=== PATIENT | female | born 1970 | race Caucasian/White ===

== ENCOUNTER 2023-01-23 06:27 | Day surgery (SDC) | payer OTHER ==
[2023-01-23] VITALS (12 sets, daily range): BP systolic 81–130; BP diastolic 43–85
[~2023-01-23] VITALS: Ht 162.6 cm; Wt 70.3 kg
[2023-01-23] MEDS ORDERED: NS IV 1000 ML 1,000 ML IV SCH (06:45)
[2023-01-23] MEDS ORDERED: ONDANSETRON 4 MG/2 ML (SDV) Z0FRAN IVP ONE (06:45)
--- NOTE | 2023-01-23 06:48 | ED Abdominal Pain ---
General Stated Complaint: FEVER 102.,ABD PAIN MIDDLE & RT Source of Information: Patient Exam Limitations: No Limitations History of Present Illness Date Seen by Provider: January 23, 2023 Time Seen by Provider: 06:35 Initial Comments 52-year-old female presents to the emergency department today for right-sided abdominal pain, nausea. Symptoms started as chills, fevers on Monday. She states this was to 103.5 when taken orally. Yesterday she developed a "pressure" in her right upper and right lower abdomen. This has been constant since that time. She states she feels as though if she vomited she would feel better. She has associated nausea but has not vomited. She has had normal bowel movements. She has had irregular menses for the last year but has not had a menstrual cycle for about 8 weeks. She denies any change in urine. Her only abdominal surgeries include a tubal ligation. No diarrhea or loose stools. She does still have her gallbladder and her appendix. Pain is nonradiating without any obvious aggravating or alleviating factors. She took a home COVID test yesterday which was negative. All other systems reviewed and negative except documented per HPI. Voice recognition software was used to help create this chart Allergies and Home Medications Allergies Coded Allergies: CAM Inhibitors (Verified Allergy, Unknown, 01/23/23) fentanyl (Verified Allergy, Unknown, 01/23/23) Patient Home Medication List Home Medication List Reviewed: Yes Review of Systems Review of Systems Constitutional: see HPI Past Mhpkzqw-Riivvg-Fsuuqy Hx Patient Social History Tobacco Use?: No Use of E-Cig and/or Vaping dev: No Substance use?: No Alcohol Use?: No Past Medical History Surgery/Hospitalization HX: Asthma, high blood pressure, tubal ligation, breast augmentation Family Medical History Reviewed Nursing Family Hx No Pertinent Family Hx Physical Exam Vital Signs Vital Signs - First Documented 01/23/23 06:39 Temp 37.1 Pulse 86 Resp 20 B/P (MAP) 151/87 (108) Pulse Ox 98 O2 Delivery Room Air Capillary Refill : Height/Weight/BMI Height: '" Weight: lbs. oz. kg; BMI Method: General Appearance: WD/WN, no apparent distress HEENT: normal ENT inspection, pharynx normal Neck: non-tender, full range of motion, supple, normal inspection Respiratory: chest non-tender, lungs clear, normal breath sounds, no respiratory distress, no accessory muscle use Cardiovascular: regular rate, rhythm, no murmur Gastrointestinal: normal bowel sounds, soft, no organomegaly, tenderness (Diffuse mild tenderness that appears to be worse in the right mid abdomen. There is voluntary guarding without any rebound tenderness. Negative obturator, heel strike.) Extremities: normal range of motion, non-tender, normal inspection, no calf tenderness, normal capillary refill Back: normal inspection, no CVA tenderness Neurologic/Psychiatric: alert, normal mood/affect, oriented x 3 Skin: normal color, warm/dry Progress/Results/Core Measures Results/Orders Lab Results Laboratory Tests Test 01/23/23 06:46 01/23/23 07:10 Range/Units White Blood Count 8.3 4.3-11.0 10^3/uL Red Blood Count 4.37 3.80-5.11 10^6/uL Hemoglobin 12.3 11.5-16.0 g/dL Hematocrit 37 35-52 % Mean Corpuscular Volume 86 80-99 fL Mean Corpuscular Hemoglobin 28 25-34 pg Mean Corpuscular Hemoglobin Concent 33 32-36 g/dL Red Cell Distribution Width 13.7 10.0-14.5 % Platelet Count 183 130-400 10^3/uL Mean Platelet Volume 9.3 9.0-12.2 fL Immature Granulocyte % (Auto) 0 % Neutrophils (%) (Auto) 81 H 42-75 % Lymphocytes (%) (Auto) 11 L 12-44 % Monocytes (%) (Auto) 5 0-12 % Eosinophils (%) (Auto) 3 0-10 % Basophils (%) (Auto) 0 0-10 % Neutrophils # (Auto) 6.7 1.8-7.8 10^3/uL Lymphocytes # (Auto) 0.9 L 1.0-4.0 10^3/uL Monocytes # (Auto) 0.4 0.0-1.0 10^3/uL Eosinophils # (Auto) 0.3 0.0-0.3 10^3/uL Basophils # (Auto) 0.0 0.0-0.1 10^3/uL Immature Granulocyte # (Auto) 0.0 0.0-0.1 10^3/uL Sodium Level 138 135-145 MMOL/L Potassium Level 3.0 L 3.6-5.0 MMOL/L Chloride Level 102 98-107 MMOL/L Carbon Dioxide Level 23 21-32 MMOL/L Anion Gap 13 5-14 MMOL/L Blood Urea Nitrogen 8 7-18 MG/DL Creatinine 0.73 0.60-1.30 MG/DL Estimat Glomerular Filtration Rate 100 BUN/Creatinine Ratio 11 Glucose Level 99 70-105 MG/DL Calcium Level 8.9 8.5-10.1 MG/DL Corrected Calcium 9.2 8.5-10.1 MG/DL Total Bilirubin 0.5 0.1-1.0 MG/DL Aspartate Amino Transf (AST/SGOT) 22 5-34 U/L Alanine Aminotransferase (ALT/SGPT) 34 0-55 U/L Alkaline Phosphatase 55 40-136 U/L Total Protein 7.3 6.4-8.2 GM/DL Albumin 3.6 3.2-4.5 GM/DL Lipase 7 L 8-78 U/L Urine Color YELLOW Urine Clarity CLEAR Urine pH 6.0 5-9 Urine Specific [place] 1.020 1.016-1.022 Urine Protein 2+ H NEGATIVE Urine Glucose (UA) NEGATIVE NEGATIVE Urine Ketones 3+ H NEGATIVE Urine Nitrite NEGATIVE NEGATIVE Urine Bilirubin 1+ H NEGATIVE Urine Urobilinogen 0.2 < = 1.0 MG/DL Urine Leukocyte Esterase NEGATIVE NEGATIVE Urine RBC (Auto) TRACE-I H NEGATIVE Urine RBC 0-2 /HPF Urine WBC 2-5 /HPF Urine Squamous Epithelial Cells 5-10 /HPF Urine Crystals NONE /LPF Urine Bacteria FEW H /HPF Urine Casts NONE /LPF Urine Mucus SMALL H /LPF Urine Culture Indicated NO My Orders Orders - CHRISTIE FIGUEROA DO Cbc With Automated Diff (01/23/23 06:43) Comprehensive Metabolic Panel (01/23/23 06:43) Lipase (01/23/23 06:43) Urine Bedside (01/23/23 06:43) Ua Culture If Indicated (01/23/23 06:43) Ct Abdomen/Pelvis W (01/23/23 06:43) Ns Iv 1000 Ml (Sodium Chloride 0.9%) (01/23/23 06:45) Ondansetron Injection (Zofran Injectio (01/23/23 06:45) Iohexol Injection (Omnipaque 350 Mg/Ml 1 (01/23/23 07:00) Received Contrast (Hold Metformin- Contr (01/23/23 07:00) Ns (Ivpb) (Sodium Chloride 0.9% Ivpb Bag (01/23/23 07:00) Ketorolac Injection (Toradol Injection) (01/23/23 07:45) Morphine Injection (Morphine Injection (01/23/23 07:59) Medications Given in ED Current Medications Medications Dose Ordered Sig/Herminio Route Start Time Stop Time Status Last Admin Dose Admin Iohexol 100 ml ONCE ONCE IV 01/23/23 07:00 01/23/23 07:01 DC 01/23/23 07:37 80 ML Ketorolac Tromethamine 15 mg ONCE ONCE IVP 01/23/23 07:45 01/23/23 07:46 DC 01/23/23 07:43 15 MG Ondansetron HCl 8 mg ONCE ONCE IVP 01/23/23 06:45 01/23/23 06:46 DC 01/23/23 06:54 8 MG Sodium Chloride 100 ml ONCE ONCE IV 01/23/23 07:00 01/23/23 07:01 DC 01/23/23 07:38 80 ML Vital Signs/I&O 01/23/23 06:39 Temp 37.1 Pulse 86 Resp 20 B/P (MAP) 151/87 (108) Pulse Ox 98 O2 Delivery Room Air Departure Communication (Admissions) Patient is hemodynamically stable. Initially she is diffusely tender in the right side of her abdomen with voluntary guarding. She has had a significant amount of pain febrile and nontoxic. Labs are reassuring. No evidence for pancreatitis, biliary obstruction. UTI or pyelonephritis, pelvic pathology, appendicitis, bowel pathology. I did independently review her CT scan images. I agree with radiology findings of cholelithiasis without any other acute abnormalities. White blood cell count is normal she is afebrile. I do not think she has acute cholecystitis. I think her symptoms are related to biliary colic. I have given her IV Toradol, IV morphine and IV Zofran. She had a slight improvement in her pain but is still in a considerable amount of discomfort. With that I called Dr. Souleymane delong recommends admission for cholecystectomy. He does not wish to proceed with ultrasound imaging with normal LFTs. He states he will be down soon to evaluate the patient for surgery. Last p.o. intake was 330 this morning, sip of water with some Tylenol. Impression Primary Impression: Cholelithiasis Qualified Codes: K80.20 - Calculus of gallbladder without cholecystitis without obstruction Additional Impression: Biliary colic Disposition: ADMITTED INPATIENT Condition: Stable Admissions Decision to Admit Reason: Admit from ER (General) Departure-Patient Inst. Referrals: ESTHER ASTUDILLO APRN (PCP) Primary Care Physician CHRISTIE FIGUEROA DO January 23, 2023 06:48
[2023-01-23 06:56] LABS: BASOPHILS % (AUTO) 0 % (0-10); EOSINOPHILS # (AUTO) 0.3 10^3/uL (0.0-0.3); EOSINOPHILS % (AUTO) 3 % (0-10); HEMATOCRIT 37 % (35-52); HEMOGLOBIN 12.3 g/dL (11.5-16.0); LYMPHOCYTES # (AUTO) 0.9 10^3/uL (1.0-4.0); LYMPHOCYTES % (AUTO) 11 % (12-44); MEAN CORPUSCULAR HEMOGLOBIN 28 pg (25-34); MEAN CORPUSCULAR HGB CONC 33 g/dL (32-36); MEAN CORPUSCULAR VOLUME 86 fL (80-99); MEAN PLATELET VOLUME 9.3 fL (9.0-12.2); MONOCYTES # (AUTO) 0.4 10^3/uL (0.0-1.0); MONOCYTES % (AUTO) 5 % (0-12); NEUTROPHILS # (AUTO) 6.7 10^3/uL (1.8-7.8); NEUTROPHILS % (AUTO) 81 % (42-75); PLATELET COUNT 183 10^3/uL (130-400); WHITE BLOOD COUNT 8.3 10^3/uL (4.3-11.0)
[2023-01-23] MEDS ORDERED: IOHEXOL 350 MG/ML 100 ML (OMNIPAQUE 350) VIAL IV ONE (07:00)
[2023-01-23] MEDS ORDERED: NS 100 ML (IVPB) BAG IV ONE (07:00)
[2023-01-23] MEDS ORDERED: HOLD METFORMIN - RECEIVED CONTRAST 20 ML VIAL IV SCH (07:00)
[2023-01-23 07:08] LABS: ALBUMIN 3.6 GM/DL (3.2-4.5)
[2023-01-23 07:10] LABS: CALCIUM 8.9 MG/DL (8.5-10.1)
[2023-01-23 07:11] LABS: TOTAL PROTEIN 7.3 GM/DL (6.4-8.2)
[2023-01-23 07:13] LABS: BILIRUBIN,TOTAL 0.5 MG/DL (0.1-1.0)
[2023-01-23 07:15] LABS: CREATININE SERUM 0.73 MG/DL (0.60-1.30)
[2023-01-23 07:18] LABS: CLARITY,URINE CLEAR; COLOR,URINE YELLOW; GLUCOSE, URINE (UA) NEGATIVE (NEGATIVE); KETONES,URINE 3+ (NEGATIVE); LEUKOCYTE ESTERASE ,URINE NEGATIVE (NEGATIVE); NITRITE,URINE NEGATIVE (NEGATIVE); PROTEIN,URINE 2+ (NEGATIVE)
[2023-01-23 07:30] LABS: BACTERIA,URINE FEW /HPF; BILIRUBIN,URINE 1+ (NEGATIVE); RBC,URINE 0-2 /HPF
[2023-01-23] MEDS ORDERED: KETOROLAC 15 MG/ML VIAL IVP ONE (07:45)
--- NOTE | 2023-01-23 07:47 | Diagnostic Imaging Report ---
PROCEDURE: CT abdomen and pelvis with contrast. TECHNIQUE: Multiple contiguous axial images were obtained through the abdomen and pelvis after administration of intravenous contrast. Auto Exposure Controls were utilized during the CT exam to meet ALARA standards for radiation dose reduction. All CT scans use one or more of the following dose optimizing techniques: automated exposure control, MA and/or KvP adjustment based on patient size and exam type or iterative reconstruction. INDICATION: There has been bilateral breast augmentation with implants. The lung bases are clear. The liver is normal in size without focal lesions. No biliary duct dilatation. There is cholelithiasis. The spleen is normal in size. The pancreas and adrenal glands are unremarkable. Kidneys are normal in appearance. Aorta is nonaneurysmal. The bowel gas pattern is nonspecific. There is no free air. There may be some trace free pelvic fluid, likely physiologic. Bladder is normal. There is no pelvic mass or adenopathy. There are minimal degenerative changes in the spine IMPRESSION: Cholelithiasis. Trace free fluid in the pelvis likely physiologic. No other acute abnormality in the abdomen or pelvis. Dictated by: Dictated on workstation # [id number]
[2023-01-23] MEDS ORDERED: morphine INJ 10 MG/ML 1ML (SYR OR VIAL) IVP STA (07:59)
[2023-01-23] MEDS ORDERED: HYDROmorphone 2 MG/ML VIAL (DILAUDID) IV ONE ×2 (10:15→12:30)
--- NOTE | 2023-01-23 11:22 | Consultation - Surgery ---
History of Present Illness History of Present Illness Patient Consulted On(chiquis/time) 01/23/23 11:16 Time Seen by Provider: 10:26 History of Present Illness Surgery asked to consult regarding Cholelithiasis/Cholecystitis HPI per ED: 52-year-old female presents to the emergency department today for right-sided abdominal pain, nausea. Symptoms started as chills, fevers on Monday. She states this was to 103.5 when taken orally. Yesterday she developed a "pressure" in her right upper and right lower abdomen. This has been constant since that time. She states she feels as though if she vomited she would feel better. She has associated nausea but has not vomited. She has had normal bowel movements. She has had irregular menses for the last year but has not had a menstrual cycle for about 8 weeks. She denies any change in urine. Her only abdominal surgeries include a tubal ligation. No diarrhea or loose stools. She does still have her gallbladder and her appendix. Pain is nonradiating without any obvious aggravating or alleviating factors. She took a home COVID test yesterday which was negative. When I saw pt she was in the bed in ER, did not appear completely comfortable and said to me "get this out". She stated the pain started Monday and progressively got worse, associated with fever. She has never had pain like this before or even minimal pain in the RUQ. Denies any association with food; nothing makes worse. Pain is described as constant ache without any radiation of the pain. Allergies and Home Medications Allergies Coded Allergies: CAM Inhibitors (Verified Allergy, Unknown, 01/23/23) fentanyl (Verified Allergy, Unknown, 01/23/23) Patient Home Medication List Home Medication List Reviewed: Yes Past Wpbzqco-Sktdpy-Zijayu Hx Patient Social History Smoking Status: Never a Smoker Alcohol Use?: No Have you traveled recently?: No Surgeries History of Surgeries: Yes (breast augmentation) Surgeries: Tubal Ligation Respiratory History of Respiratory Disorde: Yes Respiratory Disorders: Asthma Cardiovascular History of Cardiac Disorders: Yes Cardiac Disorders: Hypertension Neurological History of Neurological Disord: No Reproductive System : No Genitourinary History of Genitourinary Disor: No Gastrointestinal History of Gastrointestinal Di: Yes Gastrointestinal Disorders: Gall Bladder Disease Musculoskeletal History of Musculoskeletal Dis: No Endocrine History of Endocrine Disorders: No HEENT History of HEENT Disorders: No Loss of Vision: Denies Hearing Impairment: Denies Cancer History of Cancer: No Psychosocial History of Psychiatric Problem: No Family Medical History Significant Family History: Diabetes (mother and father), GI Disease (Mother had GB removed), Hypertension (mother and father) Review of Systems-General Constitutional: chills, diaphoresis, fever, malaise EENTM: No blurred vision, No mouth swelling, No epistaxis Respiratory: No cough, No dyspnea on exertion Cardiovascular: No chest pain, No palpitations Gastrointestinal: abdominal pain; No hematemesis, No jaundice; loss of appetite, nausea Genitourinary: No dysuria, No frequency, No hematuria : No Musculoskeletal: No joint pain, No joint swelling Skin: No change in color, No change in hair/nails Psychiatric/Neurological: Denies Anxiety, Denies Depressed, Denies Seizure, Denies Tremors Physical Exam-General Problems Physical Exam Vital Signs Vital Signs - First Documented 01/23/23 06:39 Temp 37.1 Pulse 86 Resp 20 B/P (MAP) 151/87 (108) Pulse Ox 98 O2 Delivery Room Air Capillary Refill : Less Than 3 Seconds General Appearance: WD/WN, moderate distress Eyes: Bilateral Eye PERRL, Bilateral Eye EOMI HEENT: pharynx normal; No scleral icterus (R), No scleral icterus (L) Neck: non-tender, supple Respiratory: lungs clear, normal breath sounds, no respiratory distress, no accessory muscle use Cardiovascular: regular rate, rhythm, no murmur Gastrointestinal: soft, no organomegaly, no pulsatile mass, tenderness (RUQ and epigastric); No hernia Rectal: deferred Back: no CVA tenderness, no vertebral tenderness Extremities: non-tender, no pedal edema, no calf tenderness 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, no motor/sensory deficits, alert, normal mood/affect, oriented x 3 Skin: normal color, warm/dry Lymphatic: no adenopathy (neck, axilla or groin) Data Review Labs Laboratory Tests 01/23/23 06:46: White Blood Count 8.3, Red Blood Count 4.37, Hemoglobin 12.3, Hematocrit 37, Mean Corpuscular Volume 86, Mean Corpuscular Hemoglobin 28, Mean Corpuscular Hemoglobin Concent 33, Red Cell Distribution Width 13.7, Platelet Count 183, Mean Platelet Volume 9.3, Immature Granulocyte % (Auto) 0, Neutrophils (%) (Auto) 81H, Lymphocytes (%) (Auto) 11L, Monocytes (%) (Auto) 5, Eosinophils (%) (Auto) 3, Basophils (%) (Auto) 0, Neutrophils # (Auto) 6.7, Lymphocytes # (Auto) 0.9L, Monocytes # (Auto) 0.4, Eosinophils # (Auto) 0.3, Basophils # (Auto) 0.0, Immature Granulocyte # (Auto) 0.0, Sodium Level 138, Potassium Level 3.0L, Chloride Level 102, Carbon Dioxide Level 23, Anion Gap 13, Blood Urea Nitrogen 8, Creatinine 0.73, Estimat Glomerular Filtration Rate 100, BUN/Creatinine Ratio 11, Glucose Level 99, Calcium Level 8.9, Corrected Calcium 9.2, Total Bilirubin 0.5, Aspartate Amino Transf (AST/SGOT) 22, Alanine Aminotransferase (ALT/SGPT) 34, Alkaline Phosphatase 55, Total Protein 7.3, Albumin 3.6, Lipase 7L 01/23/23 07:10: Urine Color YELLOW, Urine Clarity CLEAR, Urine pH 6.0, Urine Specific [place] 1.020, Urine Protein 2+H, Urine Glucose (UA) NEGATIVE, Urine Ketones 3+H, Urine Nitrite NEGATIVE, Urine Bilirubin 1+H, Urine Urobilinogen 0.2, Urine Leukocyte Esterase NEGATIVE, Urine RBC (Auto) TRACE-IH, Urine RBC 0-2, Urine WBC 2-5, Urine Squamous Epithelial Cells 5-10, Urine Crystals NONE, Urine Bacteria FEWH, Urine Casts NONE, Urine Mucus SMALLH, Urine Culture Indicated NO Radiology Date of Exam:01/23/23 CT ABDOMEN/PELVIS W PROCEDURE: CT abdomen and pelvis with contrast. TECHNIQUE: Multiple contiguous axial images were obtained through the abdomen and pelvis after administration of intravenous contrast. Auto Exposure Controls were utilized during the CT exam to meet ALARA standards for radiation dose reduction. All CT scans use one or more of the following dose optimizing techniques: automated exposure control, MA and/or KvP adjustment based on patient size and exam type or iterative reconstruction. INDICATION: There has been bilateral breast augmentation with implants. The lung bases are clear. The liver is normal in size without focal lesions. No biliary duct dilatation. There is cholelithiasis. The spleen is normal in size. The pancreas and adrenal glands are unremarkable. Kidneys are normal in appearance. Aorta is nonaneurysmal. The bowel gas pattern is nonspecific. There is no free air. There may be some trace free pelvic fluid, likely physiologic. Bladder is normal. There is no pelvic mass or adenopathy. There are minimal degenerative changes in the spine IMPRESSION: Cholelithiasis. Trace free fluid in the pelvis likely physiologic. No other acute abnormality in the abdomen or pelvis. Dictated by: Dictated on workstation # [id number] Dict: 01/23/23 0739 Trans: 01/23/23 0859 CVB [id number] Interpreted by: TYRONE BERRIOS MD Electronically signed by: TYRONE BERRIOS MD 01/23/23 0859 Assessment/Plan Assessment/Plan Assessment/Plan Acute Cholecysitis with Cholelithiasis IV fluids, pain medications, anti-emetics as needed. I reviewed the CT myself and discussed the case with ER physician. She has acute cholecystitis and I believe would benefit from having her gallbladder removed. Will get consent for Laparoscopic Cholecystectomy, possible cholangiogram, possible open and all other indicated procedures. Discussed risks and complications not limited to pain, bleeding, infection, scar, damage to bowel or bile duct and need for further procedure. She is NPO and will go to the OR for surgery. All questions answered to her and her 's satisfaction. MERISSA MELISSA DO January 23, 2023 11:22
[2023-01-23] MEDS ORDERED: ONDANSETRON 4 MG/2 ML (SDV) Z0FRAN ONE (11:56)
[2023-01-23] MEDS ORDERED: proPOfol 200 MG/20 ML (DIPRIVAN) VIAL IV ONE (11:56)
[2023-01-23] MEDS ORDERED: GLYCOPYRROLATE 0.2 MG/ML (ROBINUL) 2 ML VIAL ONE (11:56)
[2023-01-23] MEDS ORDERED: LIDOCAINE PF 2% 5 ML (XYLOCAINE) VIAL ONE (11:56)
[2023-01-23] MEDS ORDERED: MIDAZOLAM 2 MG/2 ML (VERSED) VIAL ONE (11:56)
[2023-01-23] MEDS ORDERED: fentaNYL INJ 100 MCG/2 ML AMP ONE (11:56)
[2023-01-23] MEDS ORDERED: ROCURONIUM 50 MG/5 ML (ZEMURON) VIAL IV ONE (11:57)
[2023-01-23] MEDS ORDERED: NEOSTIGMINE (BLOXIVERZ ) 1 MG/1ML 10 ML VIAL ONE (11:57)
[2023-01-23] MEDS ORDERED: BUP/EPI 0.25% 1:200,000 (MARCAINE) 30 ML VIAL ONE (11:59)
[2023-01-23] MEDS ORDERED: LACTATED RINGERS 1,000 ML IV PRN (12:30)
[2023-01-23] MEDS ORDERED: HYDROmorphone 2 MG/ML VIAL (DILAUDID) ONE (12:36)
[2023-01-23] MEDS ORDERED: ceFAZolin INJECTION 2,000 MG in NS (IVPB) 50 ML IV ONE (12:45)
[2023-01-23] MEDS ORDERED: morphine INJ 10 MG/ML 1ML (SYR OR VIAL) ONE (12:52)
[2023-01-23] MEDS ORDERED: IOHEXOL 300 MG/ML 30 ML (OMNIPAQUE 300) VIAL INJ ONE (13:20)
[2023-01-23] MEDS ORDERED: BUP/EPI 0.25% 1:200,000 (MARCAINE) 30 ML VIAL INJ ONE (13:20)
[2023-01-23] MEDS ORDERED: OMEG100032 PO (13:28)
[2023-01-23] MEDS ORDERED: UBID100C17 PO (13:28)
[2023-01-23] MEDS ORDERED: RED600CA2 PO (13:28)
[2023-01-23] MEDS ORDERED: BIOTIN PO (13:28)
[2023-01-23] MEDS ORDERED: FLUT1BLS IH (13:28)
[2023-01-23] MEDS ORDERED: FEXO1TAB43 PO (13:28)
[2023-01-23] MEDS ORDERED: MONT-47 PO (13:28)
[2023-01-23] MEDS ORDERED: CHLO25TA22 PO (13:28)
[2023-01-23] MEDS ORDERED: LOSA25TA41 PO (13:28)
--- NOTE | 2023-01-23 13:52 | Anesthesia-General Post-Op ---
General Patient Condition Mental Status/LOC: Same as Preop Cardiovascular: Satisfactory Nausea/Vomiting: Absent Respiratory: Satisfactory Pain: Controlled Complications: Absent Post Op Complications Complications None Follow Up Care/Instructions Patient Instructions None needed. Anesthesia/Patient Condition Patient Condition Patient is doing well, no complaints, stable vital signs, no apparent adverse anesthesia problems. No complications reported per nursing. MARYBETH SNIDER CRNA January 23, 2023 13:52
--- NOTE | 2023-01-23 13:54 | Progress Note-Post Operative ---
Post-Operative Progess Note Surgeon (s)/Chief Specialist Leed (s) Surgeon MERISSA MELISSA DO Chief Specialist Leed: [place] Pre-Operative Diagnosis Acute Cholecystitis/Cholelithiasis Post-Operative Diagnosis same Procedure & Operative Findings Date of Procedure 01/23/23 Procedure Performed/Findings PROCEDURE: Laparoscopic cholecystectomy with intraoperative cholangiogram. COMPLICATIONS: None. PROCEDURE: The patient was taken to the operating suite and was prepped and draped in sterile fashion. A surgical pause was performed. Just superior to the umbilicus, a 12 mm incision was made. Dissection was taken down to the fascia, which was then scored and grasped with a Prosper and the abdomen was then entered. An 0 Vicryl suture was placed in a [id number] fashion and a Melton trocar was placed and secured. Pneumoperitoneum was achieved. A 5mm trochar place in the subxyphoid and 2 in the right upper quadrant. Immediately upon entering saw some fibrinous material and purulent fluid; pictures taken. The gallbladder was distended but the wall was thin; it was grasped and taken in the superior direction. Then grasped down at Owusu's pouch and pulled in the infero-lateral direction. The cystic duct and cystic artery were then dissected out. Clip was placed on the distal portion of the cystic duct which was then partially transected. An arrow catheter was inserted into the duct. The cholangiogram was then performed. No filling defects and contrast made its way into the duodenum. Catheter removed. Clips were placed on proximal portion of the cystic duct and then the duct was then transected. Clips were placed along the proximal and distal portion of the cystic artery which was then transected. Hook cautery was used to dissect the gallbladder from the gallbladder fossa. There was a lot of edema between the gallbladder and the fossa, indicating an acute process. Gallbladder removed and made sure to achieve hemostasis. The gallbladder was placed in an Endobag and removed through the 12 mm trocar site. The abdomen was then reinspected. Copious amounts of irrigation were used to irrigate the abdomen and there were no signs of active bleeding. Hemostasis had been achieved. The 12 mm fascial defect was then closed with 0 Vicryl suture that had been placed in a [id number] fashion. The abdomen was then desufflated, the trocars were removed. The abdomen was then washed and dried. The skin was then closed using 4-0 Monocryl in a subcuticular fashion. The abdomen was washed and dried and Skin Affix was place over incisions. Patient tolerated the procedure well without any complications and was taken to the recovery room in stable condition. Dr. Kauffman assisted on this case helping to make incisions, close incisions, identify anatomy and hold anatomy out of the way. Anesthesia Type GET Estimated Blood Loss Estimated blood loss (mL): scant Specimens/Packing Specimens Removed GB and contents MERISSA MELISSA DO January 23, 2023 13:54
[2023-01-23] MEDS ORDERED: ACHD5005 PO (13:56)
--- NOTE | 2023-01-23 13:57 | Discharge Inst-Surgical ---
Discharge Inst-Surgical Depart Medication/Instructions New, Converted or Re-Newed RX: Transmitted to Pharmacy Patient Instructions Follow up Appt: Make appointment for 1 week. [phone] Instructions: No lifting greater than 20 pounds. No strenuous activity. May shower in 24 hours, no tub bath or soaking. Use incentive spirometer at home as directed. No Smoking Skin/Wound Care: May remove bandages in am. You need to leave the Dermabond on incision it will fall off on it's own. Symptoms to Report: Appetite Changes, Extremity Discoloration, Numbness/Tingling, Swelling Increased, Bleeding Excessive, Eyesight Changes, Pain Increased, Urine Color Change, Constipation(Persistent), Fever over 101 degree F, Pain/Pressure in chest, Urinating Difficulty, Cough Up/Vomit Blood, Heart Beat Irreg/Pounding, Pain/Pressure in jaw, Cramps in feet or legs, Lightheadedness, Pain/Pressure in shoulder, Diarrhea(Persistent), Memory Changes Suddenly, Questions/Concerns, Weight gain consecutive days, Dizziness/Fainting, Nausea/Vomiting, Shortness of Breath, Weight gain over 2 pounds If questions or concerns contact your physician Or seek help at emergency department. Activity Activity as Tolerated: Yes Activity Instructions: Avoid Stress to Incision Driving Instructions: No Driving/Refer to Diet Discharge Diet: Avoid Fatty Foods, Low Fat/Low Cholesterol Diet After 24 Hours: Clear Liquid if Nauseous If Any Problems/Questions/Issu: Contact Your Physician, Go to Emergency Room Skin/Wound Care Infection Signs and Symptoms: Increased Redness, Foul Odor of Wound, Increased Drainage, Skin Itchy or Has a Rash, Increased Swelling, Temperature Above 101 F Wound Care Comment: heating pad to shoulder or neck tonight for pain Bathing Instructions: Shower Stitches/[place]/Dermabond Dis: Dermabond Ice Pack: Ice On and Off Site MERISSA MELISSA DO January 23, 2023 13:57
[2023-01-23] MEDS ORDERED: morphine INJ 10 MG/ML 1ML (SYR OR VIAL) IVP ONE (14:00)
[2023-01-23] MEDS ORDERED: ONDANSETRON 4 MG/2 ML (SDV) Z0FRAN IVP PRN (14:00)
--- NOTE | 2023-01-23 17:08 | Diagnostic Imaging Report ---
INDICATION: Cholelithiasis, undergoing cholecystectomy. FINDINGS: Single intraoperative cholangiogram image is submitted. There is cannulation of the extra hepatic biliary tree. Images demonstrate minimal contrast opacification of the common bile duct. Overall assessment is limited and incomplete. IMPRESSION: Incomplete laparoscopic cholangiogram. Correlation with intraoperative findings. Dictated by: Dictated on workstation # [id number]
== END 2023-01-23 16:00 | disposition home or self-care (01) ==
LOC: ER 06:34 → SDC 11:05
PROVIDERS: ATTEND Surgery
DX: K80.66 Calculus of gallbladder and bile duct with acute and chronic cholecystitis without obstruction (principal)
CPT/HCPCS: 36415; 74177; 76000; 80053; 81000; 83690; 84703; 85025; 87081; 88304

== ENCOUNTER 2023-07-19 09:49 | Outpatient (CLI) | payer OTHER ==
[~2023-07-19] VITALS: Ht 162.6 cm; Wt 69.9 kg
[~2023-07-19 09:49] MED LIST: ACHD5005 PO; BIOTIN PO; CHLO25TA22 PO; FEXO1TAB43 PO; FLUT1BLS IH; LOSA25TA41 PO; MONT-47 PO; OMEG100032 PO; RED600CA2 PO; UBID100C17 PO
[2023-07-21] MEDS ORDERED: FLUT1BLS IH (11:42)
[2023-07-21] MEDS ORDERED: ALBU0.63 IH (11:42)
[2023-07-21] MEDS ORDERED: CYAN-23 PO (11:42)
== END 2023-07-21 11:43 | disposition home or self-care (01) ==
LOC: PREOP 09:49
PROVIDERS: ATTEND Surgery
DX: Z01.818 Encounter for other preprocedural examination (principal)

== ENCOUNTER 2023-07-31 08:41 | Day surgery (SDC) | payer OTHER ==
[~2023-07-31] VITALS: Ht 162.6 cm; Wt 69.9 kg
[~2023-07-31 08:41] MED LIST changes: +ALBU0.63 IH; +CYAN-23 PO
[2023-07-31] MEDS ORDERED: LACTATED RINGERS 1,000 ML 1,000 ML IV STA (08:45)
[2023-07-31 09:07] VITALS: BP 146/86
--- NOTE | 2023-07-31 09:31 | Progress Note-Pre Operative ---
Pre-Operative Progress Note Date of Available H&P: Jul 18, 2023 Date H&P Reviewed: Jul 31, 2023 Time H&P Reviewed: 09:29 History & Physical: H&P Reviewed, Patient Examed, No changes noted Pre-Operative Diagnosis: Screening colonoscopy MERISSA MELISSA DO Jul 31, 2023 09:31
[2023-07-31] MEDS ORDERED: MIDAZOLAM INJ 2 MG/2 ML VIAL ONE (10:34)
--- NOTE | 2023-07-31 11:04 | Progress Note-Post Operative ---
Post-Operative Progess Note Surgeon (s)/Master Tax Advisor (s) Surgeon MERISSA MELISSA DO Master Tax Advisor: Beata Forrest, PAULINOII Pre-Operative Diagnosis Screening colonoscopy Post-Operative Diagnosis Polyps int hemorrhoids Procedure & Operative Findings Date of Procedure 07/31/23 Procedure Performed/Findings Colonoscopy with snare polypectomy PROCEDURE NOTE: After informed consent was obtained, the patient was brought to the endoscopy suite, placed in bed in left lateral decubitus position. She was administered IV sedation by the CAR HOSTLER who then monitored her vitals the entire time, heart rate, blood pressure and pulse ox and the scope was inserted, pushed all the way to about 100 cm and pushed into the cecum, took a picture of appendiceal orifice and noted the ileocecal valve. Then slowly withdrew the scope insufflating to look circum- ferentially at the hodgson starting in the cecum, up the ascending colon to the hepatic flexure, then down the transverse colon to the splenic flexure and into the descending colon down. Just into the descending colon I found two polyps and removed them with the snare. Continued down into the sigmoid and found a large polyp that I also removed with hot snare. Finally, into the rectal vault and retroflexed the scope. Took a picture of the internal hemorrhoids. The patient tolerated the procedure. She was recovered in endoscopy suite. Recommended for repeat colonoscopy in 5 years. Anesthesia Type IV sedation by CAR HOSTLER Estimated Blood Loss Estimated blood loss (mL): scant Specimens/Packing Specimens Removed desc colon polyp x 2 sigmoid polyp MERISSA MELISSA DO Jul 31, 2023 11:04
[2023-07-31 11:06] VITALS: BP 117/71
[2023-07-31 11:10] VITALS: BP 112/69
[2023-07-31 11:20] VITALS: BP 112/69
--- NOTE | 2023-07-31 12:07 | Endoscopy Discharge Instruct ---
Endo Procedure/Findings Findings 1.: Polyp 2.: Internal Hemorrhoids Discharge Instructions - Activity: You might feel a little sleepy until tomorrow. This is due to the medicine you received to relax you. Until tomorrow, you should: NOT drive a car, operate machinery or power tools. NOT drink any alcoholic beverages. NOT make any important decisions or sign importortant papers. Do not return to work until tomorrow, unless otherwise instructed. Resume previous activities tomorrow. Diet: Start by taking liquids. If you tolerate liquids, advance to solid food. 1.: Colonscopy in 5 years Notify Physician - If you experience excessive bleeding, unusual abdominal pain, fever, or chest pain, contact your doctor immediately. Follow-Up: Other Follow up in my office in one week MERISSA MELISSA DO Jul 31, 2023 12:07
--- NOTE | 2023-07-31 14:17 | Anesthesia-General Post-Op ---
MAC Patient Condition Mental Status/LOC: Same as Preop Cardiovascular: Satisfactory Nausea/Vomiting: Absent Respiratory: Satisfactory Pain: Controlled Complications: Absent Post Op Complications Complications None Follow Up Care/Instructions Patient Instructions None needed. Anesthesiology Discharge Order Discharge Order Patient is doing well, no complaints, stable vital signs, no apparent adverse anesthesia problems. No complications reported per nursing. HELDER DALEY CRNA Jul 31, 2023 14:17
== END 2023-07-31 12:20 | disposition home or self-care (01) ==
LOC: ENDO 08:41
PROVIDERS: ATTEND Surgery
DX: Z12.11 Encounter for screening for malignant neoplasm of colon (principal); D12.4 Benign neoplasm of descending colon; D12.5 Benign neoplasm of sigmoid colon; K64.8 Other hemorrhoids
CPT/HCPCS: 84703